=== PATIENT | female | born 1940 | race Caucasian/White ===

== ENCOUNTER 2017-04-13 08:27 | Inpatient (IN) ==
[2017-04-13] MEDS ORDERED: ONDANSETRON 4 MG/2 ML VIAL IV STA (09:19)
[2017-04-13] MEDS ORDERED: ASPIRIN 325 MG TABLET PO STA (09:19)
[2017-04-13] MEDS ORDERED: ALUM/MAG/SIMETH/LIDO VISC 1:1 30 ML BOTTLE PO STA (09:19)
[2017-04-13] MEDS ORDERED: hydrALAZINE 20 MG/1 ML VIAL IV STA (09:19)
[2017-04-13] MEDS ORDERED: NITROGLYCERIN 2% OINT 1 INCH/GM PACK TOP STA (09:19)
--- NOTE | 2017-04-13 09:24 | EKG Report ---
Stationary ECG Study [facility] ER Test Date: 04/13/2017 8:55:37 AM Pat Name: GLENDA DIAZ Department: Room: Gender: F Mini Lab Operator: JEWELS : 1940 Requested by: Jean Barragan Order Number: [id number] Reading MD: KONRAD OCHOA Intervals [place] Rate: 42 P: 999 ME: 0 QRS: 65 QRSD: 93 T: 43 QT: 525 QTc: 466 Interpretive Statements SINUS RHYTHM WITH 3RD DEGREE AV BLOCK AND JUNCTIONAL ESCAPE Electronically Signed On 04-14-17 16:05:51 CDT by KONRAD OCHOA [email or web address]
--- NOTE | 2017-04-13 09:26 | Emergency Department Note ---
Rex Hopson Brooke, am scribing for, and in the presence of, Jean House MD 09 :24. Harsh Hopson Charles R, MD, personally performed the services described in this documentation, ascribed by Esther Goodman in my presence, and it is both accurate and complete 926 . Arrival - Arrival Chief Complaint: Extremity Problem Stated Complaint: PAIN ON LEFT SIDE,FATIGUE,WEAKNESS ED Nursing Triage Note: Pt c/o pain under left shoulder blade x 2 wks with some dizziness, nausea, dirrhea, weakness, and SOB. States she saw a ROTARY ENGRAVER yesterday in [place] told she needs a cardiac W/U Mode of Arrival: Ambulatory Limitations: No Limitations Source: Patient, RN Notes Reviewed Time Seen by Provider: 04/13/17 09:11 - History of Present Illness HPI Narrative: Patient is a 76 year old female who presents to the ED with c/o pain under the left shoulder blade, shortness of breath, dizziness, nausea, and diarrhea. Patient says she moved a concrete statue, about two weeks ago, and that is when the shoulder blade pain developed. She says the pain has gotten better with time. Patient then developed the shortness of breath, dizziness, nausea, and diarrhea last night, so it concerned her. She saw a Nurse Practitioner, yesterday, at Dr. Lala's office and was told she needed a cardiac workup. Patient denies having any chest pain or fever but does have some edema to her lower extremities. She has PMHx of HTN and NIDDM. Upon triage, her blood pressure was 224/68. She is currently prescribed Hydralazine. Allergies/Adverse Reactions: Allergies Allergy/AdvReac Type Severity Reaction Status Date / Time Sulfa (Sulfonamide Allergy Swelling Verified 04/13/17 08:32 Antibiotics) of Lip/Tongue/Throat codeine AdvReac Nausea Verified 04/13/17 08:32 Home Medications: Home Medications Medication Instructions Recorded Confirmed Type Aspirin EC Tab 81 mg PO QAM 04/13/17 04/13/17 History Bisoprolol/Hctz 2.5-6.25 [Ziac 2 tablet PO QAM 04/13/17 04/13/17 History 2.5-6.25] Enalapril Tab [Vasotec Tab] 1.25 mg PO DAILY 04/13/17 04/13/17 History Omeprazole [Prilosec] 20 mg PO QAM 04/13/17 04/13/17 History glipiZIDE [Glipizide] 5 mg PO BID 04/13/17 04/13/17 History metFORMIN [Glucophage] 1,000 mg PO BID 04/13/17 04/13/17 History Review of System - Review of System 12 point system: reviewed and no additional remarkable complaints except as stated - Review of System Constitutional: Absent: fever Respiratory: Present: other (shortness of breath). Absent: respiratory distress Cardiovascular: Absent: chest pain Gastrointestinal: Present: nausea, diarrhea Musculoskeletal: Present: other (pain under left shoulder blade) Skin: Absent: rash Neurological: Present: other (dizziness) Medical,Surgical,& Family Hx - Medical History Cardio: History of: Hypertension Endocrine: History of: Diabetes Mellitus (NIDDM) - Social History Smoking Status: Never smoker Exam Vital Signs: Vital Signs Temperature 97.1 F L 04/13/17 08:56 Pulse Rate 44 L 04/13/17 08:56 Respiratory Rate 18 04/13/17 08:56 Blood Pressure 224/68 04/13/17 08:56 O2 Sat by Pulse Oximetry 100 04/13/17 09:29 - General General appearance: alert, in no apparent distress - Head Head exam: Present: atraumatic, normocephalic - Eye Eye exam: Present: normal appearance, PERRL, EOMI - ENT ENT exam: Present: normal exam - Neck Neck exam: Present: normal inspection - Chest Chest inspection: Present: normal inspection, symmetric chest wall rise - Respiratory Respiratory exam: Present: normal lung sounds bilaterally - Cardiovascular Cardiovascular exam: Present: normal rhythm, bradycardia, murmur (3 out of 6 systolic objection) - Abdominal Exam Abdominal exam: Present: soft, hyperactive bowel sounds. Absent: distention, tenderness - Extremities Exam Extremities exam: Present: pedal edema (+2 pitting edema bilateral lower extremities), other (Pain on the left posterior shoulder blade that is reproducable) - Back Exam Back exam: Present: normal inspection - Neurological Exam Neurological exam: Present: alert, oriented X3 - Psychiatric Psychiatric exam: Present: normal affect, normal mood - Skin Skin exam: Present: warm, intact, normal color. Absent: dry (clammy) Course - Consultations Consultation #1: Hospitalist will admit patient Time: 11:04 Results - Labs CBC & BMP: 04/13/17 08:48 04/13/17 08:48 Lab Results: I have reviewed the patients labs Labs: Laboratory Tests 04/13/17 08:48 WBC 11.7 RBC 4.12 Hgb 9.8 L Hct 31.5 L MCV 76.5 L MCH 24 L MCHC 31.1 L RDW 18.4 H Plt Count 331 MPV 10.6 Neut % (Auto) 76.2 H Lymph % (Auto) 16.2 L Mills % (Auto) 6.7 Eos % (Auto) 0.2 Baso % (Auto) 0.1 Neut # (Auto) 8.9 H Lymph # (Auto) 1.9 Mills # (Auto) 0.8 Eos # (Auto) 0.0 Baso # (Auto) 0.0 Immature Gran % 0.6 Nucleated RBC % 0.0 Immature Gran # 0.07 Nucleated RBCs # 0.00 Laboratory Tests 04/13/17 08:48 INR 1.1 PT Patient/Control Mix 11.4 D-Dimer, Quantitative 0.6 Laboratory Tests 04/13/17 04/13/17 04/13/17 08:48 08:48 08:48 Sodium 138 Potassium 4.6 Chloride 107 Carbon Dioxide 19 L Anion Gap 16.6 H BUN 28 H Creatinine 1.00 GFR Calculation 49 BUN/Creatinine Ratio 28.00 H Glucose 193 H Calculated Osmolality 285.7 Calcium 9.0 Magnesium 2.0 Total Bilirubin < 0.39 AST 28 ALT 41 Alkaline Phosphatase 74 Troponin I < 0.015 B-Natriuretic Peptide 906 H Total Protein 7.3 Albumin 3.6 Globulin 3.7 H Albumin/Globulin Ratio 0.9 L Lipase 149.0 Laboratory Tests 04/13/17 09:00 Free T4 1.25 TSH 3rd Generation 2.160 - Diagnostic Findings Procedure: Chest x-ray: report reviewed by me (Mild diffuse interstitial pulmonary opacities most likely pulmonary edema. Interstitial infiltrates or chronic interstitial coarsening could be considered as well. Upright PA and lateral film recommended when feasible.) Critical Care Time Critical Care Time: Yes Total Critical Care Time: 60 Disposition Clinical Impression: Lower extremity edema, Bradycardia, Congestive heart failure, Uncontrolled hypertension, Exertional dyspnea, Chest pain Case discussed with: patient, patient's family Disposition: Still a Patient Condition: Stable Time of Disposition: 11:05
[2017-04-13] MEDS ORDERED: FUROSEMIDE 40 MG/4 ML VIAL IV STA (09:33)
[2017-04-13 09:34] LABS: Basophils % 0.1 % (0.0-0.8); Eosinophils % 0.2 % (0.00-10.9); Hematocrit 31.5 VOL% (35.7-47.0); Hemoglobin 9.8 GM/DL (12.0-16.0); Immature Granulocytes % 0.6 %; Immature Granulocytes Absolute 0.07 #; Lymphocytes # 1.9 10*3/uL (1.4-4.0); Lymphocytes % 16.2 % (21.3-54.2); Mean Corpuscular HGB Conc 31.1 GM/DL (32-36); Mean Corpuscular Hemoglobin 24 PG (27-34); Mean Corpuscular Volume 76.5 FL (87-102); Mean Platelet Volume 10.6 FL (9.6-12.0); Monocytes # 0.8 10*3/uL (0.11-0.8); Monocytes % 6.7 % (1.7-12.7); Neutrophils # 8.9 10*3/uL (1.4-7.4); Neutrophils % 76.2 % (38.7-73.9); Platelet Count 331 T/CUMM (130-400); Red Blood Count 4.12 MC/CUMM (3.8-5.5); Red Cell Distribution Width 18.4 % (9.3-17.3); White Blood Count 11.7 T/CUMM (4-12)
[2017-04-13] MEDS ORDERED: NITROGLYCERIN 2% OINT 1 INCH/GM PACK TOP ONE (09:34)
[2017-04-13] MEDS ORDERED: hydrALAZINE 20 MG/1 ML VIAL ONE (09:35)
[2017-04-13] MEDS ORDERED: ALUM/MAG/SIMETH/LIDO VISC 1:1 30 ML BOTTLE PO ONE (09:35)
[2017-04-13] MEDS ORDERED: ONDANSETRON 4 MG/2 ML VIAL ONE (09:35)
[2017-04-13] MEDS ORDERED: ASPIRIN 325 MG TABLET ONE (09:35)
[2017-04-13 09:49] LABS: D-Dimer 0.6 MG/L FEU; INR 1.1; PT Patient Result 11.4 SECS
--- NOTE | 2017-04-13 10:05 | XRay Report ---
History is chest pain The heart is enlarged with central vascular prominence There are mild diffuse bilateral interstitial pulmonary opacities without more focal consolidation. Impression: Mild diffuse interstitial pulmonary opacities most likely pulmonary edema. Interstitial infiltrates or chronic interstitial coarsening could be considered as well. Upright PA and lateral film recommended when feasible PROCEDURE INTERPRETED AT [facility] DEPARTMENT OF RADIOLOGY Final Report Signed by: Dr. Linh Kirkpatrick
[2017-04-13 10:09] LABS: Alanine Aminotransferase 41 U/L (13-56); Albumin 3.6 G/DL (3.4-5.0); Alkaline Phosphatase 74 U/L (45-117); Aspartate Amino Transferase 28 U/L (0-37); Bilirubin,Total < 0.39 MG/DL (0.2-1.0); Blood Urea Nitrogen 28 MG/DL (7-18); Glucose 193 MG/DL (74-106); Osmolality,Calculated 285.7 MOS/KG (273-304); Potassium 4.6 MMOL/L (3.5-5.1); Sodium 138 MMOL/L (136-145); Total Protein 7.3 G/DL (6.4-8.3)
[2017-04-13 10:24] LABS: Free T4 (Free Thyroxine) 1.25 NG/DL (0.76-1.46); Thyroid Stimulating Hormone 2.16 uIU/ml (0.358-3.74)
[2017-04-13] MEDS ORDERED: ZALEPLON 5 MG CAPSULE PO PRN (11:54)
[2017-04-13] MEDS ORDERED: ONDANSETRON 4 MG/2 ML VIAL IV PRN (11:54)
[2017-04-13] MEDS ORDERED: MAGNESIUM SULF RIDER 4 GM in PREMIX 1 EACH IV PRN (11:54)
[2017-04-13] MEDS ORDERED: MAGNESIUM SULF RIDER 2 GM in PREMIX 1 EACH IV PRN (11:54)
[2017-04-13] MEDS ORDERED: ACETAMINOPHEN 325 MG TABLET PO PRN (11:54)
[2017-04-13] MEDS ORDERED: GLUCAGON 1 MG VIAL IM PRN (11:54)
[2017-04-13] MEDS ORDERED: DEXTROSE 50% 25 GM/50 ML VIAL IV PRN (11:54)
[2017-04-13] MEDS ORDERED: ENOXAPARIN 40 MG/0.4 ML SYRINGE SUBCUT SCH (12:00)
--- NOTE | 2017-04-13 12:01 | Hospitalist History & Physical ---
Addendum entered and electronically signed by Aldair Moffett PA 04/13/17 12:24 : In addition to the assessment and plan as listed below, the patient also has non -insulin-dependent diabetes. We will continue glipizide and initiate sliding scale insulin per protocol. Original Note: <Aldair Moffett - Last Filed: 04/13/17 11:53> Assessment and Plan (1) Congestive heart failure Status: Acute Assessment and plan: Chest x-ray shows evidence of pulmonary edema. BNP is 906. Patient will be admitted to the telemetry unit for observation and valuation. We will diuresis with IV Lasix 40 mg BID. Obtain BMP, CBC, lipid panel, serial troponins. Continue RYAN inhibitor Current Visit: Yes (2) Hypertension Status: Acute Assessment and plan: Continue home meds. Add hydralazine as needed Current Visit: Yes (3) Lower extremity edema Status: Acute Assessment and plan: She will be diuresed Current Visit: Yes (4) Bradycardia Status: Acute Assessment and plan: We are holding her beta-louise at the moment. Continue to monitor and adjust medications accordingly. Current Visit: Yes History of Present Illness Chief complaint: Dizziness, weakness, fatigue History of present illness: Ms. Henry is a 76 year old white female with a past medical history significant for hypertension and diabetes mellitus who presents to the ED today with complaints of dizziness, weakness and worsening fatigue having onset approximately 2 weeks ago. Patient reports that she initially began feeling the symptoms after moving some concrete planters on her front porch. She notes that she did feel a sharp pain in her back (under the left shoulder blade) that she attributed to muscle spasms which she already sees a chiropractor for. Today she notes that she has been dizzy with intermittent shortness of breath, epigastric pain, nausea and diarrhea on last night. She also admits to bilateral lower extremity edema. She notes that she did see a nurse practitioner at Dr. Lala's office on yesterday who told the patient that she needed a cardiac workup. She denies headache, chest pain, palpitations, syncope. Lab work at the time of admission reveals: WBC 11.7 hemoglobin 9.8, hematocrit 31.5, platelets 331, sodium 130, potassium 4.6, BUN 28, creatinine 1.00, serum glucose 193. BNP is 906. Chest x-ray does show some evidence of pulmonary edema. Case been discussed with Dr. House, ER physician, and Dr. Lindquist, admitting physician, the patient will be admitted to telemetry unit to hospital medicine service for further evaluation and treatment. Patient is a full code. Home meds have been reviewed and reconciled. Home Medications Medication Instructions Recorded Confirmed Type Aspirin EC Tab 81 mg PO QAM 04/13/17 04/13/17 History Bisoprolol/Hctz 2.5-6.25 [Ziac 2 tablet PO QAM 04/13/17 04/13/17 History 2.5-6.25] Enalapril Tab [Vasotec Tab] 1.25 mg PO DAILY 04/13/17 04/13/17 History Glucosamine/D3/Boswellia Mary Ann 1 tablet PO DAILY 04/13/17 04/13/17 History [Osteo Bi-Flex Tablet] Omeprazole [Prilosec] 20 mg PO QAM 04/13/17 04/13/17 History glipiZIDE [Glipizide] 5 mg PO BID 04/13/17 04/13/17 History metFORMIN [Glucophage] 1,000 mg PO BID 04/13/17 04/13/17 History Allergies Allergy/AdvReac Type Severity Reaction Status Date / Time Sulfa (Sulfonamide Allergy Swelling Verified 04/13/17 08:32 Antibiotics) of Lip/Tongue/Throat codeine AdvReac Nausea Verified 04/13/17 08:32 Medical,Surgical,& Family Hx - Medical History Cardio: History of: Hypertension Endocrine: History of: Diabetes Mellitus (NIDDM) - Family History Family History: Reports;: Family Heart Disease, Family Hypertension - Social History Smoking Status: Never smoker Frequency of Alcohol Use: None Type of Drug Use: None Marital Status: Lives With:: Spouse Functional capacity: independent ambulation 12 point system: reviewed and no additional remarkable complaints except as stated Exam - Constitutional Vitals: Period Temp Pulse Resp BP Sys/Gregg Pulse Ox Last 24 Hr 97.1 F-97.1 F 44-46 17-18 160-224/58-68 98-100 Exam: General appearance: Overweight, no acute distress - Head Head exam: Present: normocephalic, atraumatic - Eye Eye exam: Present: EOMI. Absent: conjunctival injection, nystagmus Pupils: Present: NORM, normal accommodation - ENT ENT exam: Present: normal exam, normal external ear exam - Neck Neck exam: Present: normal inspection. Absent: lymphadenopathy, tenderness, thyromegaly - Respiratory Respiratory exam: Present: clear to auscultation bilaterally but diminished. Absent: rhonchi, wheezes - Cardiovascular Cardiovascular exam: Present: Bradycardia. Absent: carotid bruit, gallop, rubs - GI/Abdominal GI/Abdominal exam: Present: normal bowel sounds. Absent: ascites, distended, mass - Extremities Exam Extremities exam: Present: normal inspection, normal capillary refill. Absent: edema - Back Exam Back exam: Absent: CVA tenderness (L), CVA tenderness (R) - Neurological Exam Neurological exam: Present: alert, oriented X3, reflexes normal - Psychiatric Psychiatric exam: Present: normal affect, normal mood - Skin Skin exam: Present: normal color, warm, dry Results - Labs CBC & BMP: 04/13/17 08:48 04/13/17 08:48 Lab Results: I have reviewed the past 24 hour labs - EKG EKG results: interpreted by ANEESH, sinus rhythm (High-grade AV block) <Dinorah Lindquist R - Last Filed: 04/13/17 14:38> Assessment and Plan (1) Bradycardia Status: Acute Assessment and plan: hold ziac and may have sleep apnea. Cardiology to see Current Visit: Yes (2) Diabetes mellitus Status: Acute Assessment and plan: hemoglobin A1c and restart glipizide Current Visit: Yes (3) Congestive heart failure Status: Acute Assessment and plan: agree with above, echo Current Visit: Yes (4) Chest pain Status: Acute Assessment and plan: ER MD felt she had chest pain but she denied it Current Visit: Yes (5) Hypertension Status: Acute Assessment and plan: agree Current Visit: Yes (6) VILMA (obstructive sleep apnea) Status: Acute Assessment and plan: will consult Dr. perdue may be contributing to her bradycardia Current Visit: Yes History of Present Illness History of present illness: Ms. Henry is a 76 year old female Exam - Constitutional Vitals: Period Temp Pulse Resp BP Sys/Gregg Pulse Ox Last 24 Hr 97.1 F-98.2 F 44-46 17-18 160-224/58-68 98-100 Results - Labs CBC & BMP: 04/13/17 08:48 04/13/17 08:48
--- NOTE | 2017-04-13 12:24 | EKG Report ---
Stationary ECG Study [facility] Test Date: 04/13/2017 12:27:41 PM Pat Name: GLENDA DIAZ Department: Room: 266 Gender: F Shoe Planner: POP : 1940 Requested by: Jean Barragan Order Number: [id number] Reading MD: KONRAD OCHOA Intervals [place] Rate: 44 P: 999 VA: 0 QRS: 28 QRSD: 86 T: 36 QT: 503 QTc: 453 Interpretive Statements SINUS RHYTHM WITH 3RD DEGREE AV BLOCK AND JUNCTIONAL ESCAPE Electronically Signed On 04-14-17 16:09:43 CDT by KONRAD OCHOA [email or web address]
[2017-04-13] MEDS: PANTOPRAZOLE 40 MG TABLET PO SCH (13:30)
[2017-04-13] MEDS: ENALAPRIL 2.5 MG TABLET PO SCH (13:35)
[2017-04-13] MEDS: hydrALAZINE 25 MG TABLET PO SCH ×2 (15:46→20:40)
[2017-04-13] MEDS: INSULIN LISPRO 100 UNIT/ML SUBCUT SCH ×2 (15:46→20:40)
--- NOTE | 2017-04-13 16:13 | EKG Report ---
Stationary ECG Study [facility] Test Date: 04/13/2017 4:16:08 PM Pat Name: GLENDA DIAZ Department: Room: 266 Gender: F Chief Creative Officer: : 1940 Requested by: Jean Barragan Order Number: [id number] Reading MD: KONRAD OCHOA Intervals [place] Rate: 45 P: 999 [place]: 0 QRS: 53 QRSD: 88 T: 29 QT: 508 QTc: 465 Interpretive Statements SINUS RHYTHM WITH 3RD DEGREE AV BLOCK NSSTT POOR QUALITY BASELINE Electronically Signed On 04-14-17 16:17:18 CDT by KONRAD OCHOA [email or web address]
--- NOTE | 2017-04-13 17:43 | ECHO Report ---
Uma Henry Exam Date: 04/13/2017 13:53 Referring Physician: Technologist: Dayna Dupree RDCS Age: 76 Ht (in): 56 Wt (lb): 143 Gender: F Exam Location: [facility] Indications: Heart failure, unspecified, Essential (primary) hypertension, Edema, unspecified, Bradycardia, unspecified, NIDDM, Dizziness and giddiness, Weakness, Chronic fatigue, unspecified, Shortness of breath BP: 160 / 58 HR: 46 Rhythm: Sinus Technical Quality: IMPRESSIONS Grossly 2-3+ left atrial enlargement Hyperdynamic LV systolic function with ejection fraction estimated 70% without segmental wall abnormality Significant mitral annular calcification with 1+ mitral regurgitation and mitral stenosis, possibly severe (gradient not measured) 2+ aortic stenosis with mean and peak gradients of 16/30 mmHg 1-2+ tricuspid regurgitation with RVSP 79 mmHg plus RAP suggesting severe pulmonary hypertension MEASUREMENTS (Male / Female) Normal Values 2D ECHO LV Diastolic Diameter PLAX 4.3 cm 4.2 - 5.9 / 3.9 - 5.3 cm LV Systolic Diameter PLAX 2.7 cm LV Fractional Shortening PLAX 36.5 % IVS Diastolic Thickness 1.1 cm 0.6 - 1.0 / 0.6 - 0.9 cm LVPW Diastolic Thickness 1.0 cm 0.6 - 1.0 / 0.6 - 0.9 cm RV Internal Dim ED PLAX 3.2 cm Aortic Root Diameter 2.9 cm LA Systolic Diameter LX 3.6 cm 3.0 - 4.0 / 2.7 - 3.8 cm DOPPLER TR Peak Velocity 444.0 cm/s TR Peak Gradient 78.9 mmHg FINDINGS Left Ventricle Normal left ventricular cavity size. Mild left ventricular hypertrophy. Left ventricular ejection fraction is estimated at Right Ventricle The right ventricle is normal in size and function. Right Atrium Moderately increased right atrial size. Left Atrium Moderately increased left atrial size. Mitral Valve Thickened mitral valve. Moderate mitral annular calcification. Mild- moderate mitral valve regurgitation. Aortic Valve Mild aortic valve sclerosis. Mean gradient 15 mmHg, CONSTANTINO 1.9 cm. Trace aortic valve regurgitation. Tricuspid Valve Morphologically normal tricuspid valve. [id number] tricuspid valve regurgitation. Tricuspid regurgitation velocities suggest a PAP of 89 mmHg. Pulmonic Valve Morphologically normal pulmonic valve. Mild pulmonary valve regurgitation. Pericardium Normal pericardium without effusion. Aorta Normal ascending aorta dimension. Dae Joransen (Electronically Signed) Final Date: 13 April 2017 17:42
[2017-04-13 18:10] LABS: Apearance,Urine Slightly Hazy (Clear); Bilirubin,Urine Negative (Negative); Blood, Urine Negative (Negative); Glucose,Urine (UA) Negative (Negative); Hyaline Casts,Urine 10 /LPF (0-3); Ketones,Urine Negative (Negative); Nitrite,Urine Negative (Negative); Protein,Urine 30 MG/DL; RBC,Urine <1 /HPF (0-4); Squamous Epithelial Cell,Urine Occasional /HPF (0-10); Urine Color Yellow (Yellow); Urine Specific Gravity 1.006 (1.001-1.035); Urine Urobilinogen < 2.0 EU/DL (0.2-1.0); WBC,Urine 1 /HPF (0-6)
--- NOTE | 2017-04-13 18:21 | Cardiology Consult Note ---
Assessment and Plan (1) Third degree AV block Status: Acute Assessment and plan: 1. 76-year-old with hypertension, NIDDM, and two-week history of fatigue with dizziness 2 weeks ago as well as yesterday associated with bradycardia from third-degree heart block (narrow complex junctional escape in the mid 40s), feeling a bit better this afternoon. 2. She has been on bisoprolol for 20 years and took some between 7 and 8:00 this morning; will hold this and consider pacemaker placement tomorrow. 3. Increased gradient across her mitral valve suggest mitral stenosis from mitral annular calcification; I have asked that the gradient be measured in the morning to better assess this. 4. N.p.o. after midnight. I have asked Dr. Elizabeth to perform pacemaker placement tomorrow if needed. 5. Check morning EKG 6. Check TSH, electrolytes and morning 7. Of note blood pressure was 220s/60s initially this morning. Current Visit: Yes (2) Dizziness Status: Acute Current Visit: Yes (3) Hypertension Status: Acute Current Visit: Yes History of Present Illness - Consult Narrative History of present illness: Ms. Henry is a 76 year old female who reports some scapular pain while moving a statue on some sliders 2 weeks ago. She then went cut the grass and noticed some fatigue and diaphoresis as well as some dizziness without true presyncope or syncope. She has had some milder symptoms intermittently since that time but then yesterday she was walking in [facility] and developed more severe fatigue with dizziness as well. She was told by her practitioner to see a buckle and button maker because of her symptoms and medical problems. She has not had chest pain or significant shortness of breath. She did have a little lower extremity edema in the last couple of days. CC: Dinorah Lindquist MD - Home Medications and Allergies Home Medications: Home Medications Medication Instructions Recorded Confirmed Type Aspirin EC Tab 81 mg PO QAM 04/13/17 04/13/17 History Bisoprolol/Hctz 2.5-6.25 [Ziac 2 tablet PO QAM 04/13/17 04/13/17 History 2.5-6.25] Enalapril Tab [Vasotec Tab] 1.25 mg PO DAILY 04/13/17 04/13/17 History Glucosamine/D3/Boswellia Mary Ann 1 tablet PO DAILY 04/13/17 04/13/17 History [Osteo Bi-Flex Tablet] Omeprazole [Prilosec] 20 mg PO QAM 04/13/17 04/13/17 History glipiZIDE [Glipizide] 5 mg PO BID 04/13/17 04/13/17 History metFORMIN [Glucophage] 1,000 mg PO BID 04/13/17 04/13/17 History Allergies/Adverse Reactions: Allergies Allergy/AdvReac Type Severity Reaction Status Date / Time Sulfa (Sulfonamide Allergy Swelling Verified 04/13/17 08:32 Antibiotics) of Lip/Tongue/Throat codeine AdvReac Nausea Verified 04/13/17 08:32 Medical,Surgical,& Family Hx - Medical History Cardio: History of: Hypertension No history of: Aneurysm, Cardiac Dysrhythmia, Cerebrovascular Disease, Congenital Heart Disease, CHF, CAD, [place], Pacemaker, PVD, Valvular Heart Disease Psychological: No history of: Anxiety Disorders, ADHD, Behavior Problems, Bipolar Disorder, Depression, Previous Suicide Attempt, Psychiatric/Substance Abuse Tx, Schizophrenia, Violent Behavior, Psychiatric Problems Neurology: History of: Vertigo (Started two weeks ago) No history of: Brain Aneurysm, Cerebral Hemorrhage, Cerebrovascular Accident , Cerebral Palsy, Dementia, Migraine, Multiple Sclerosis, Parkinson's Disease, Peripheral Neuropathy, Seizures, TIA, Neurologocal Cancer HEENT: History of: Eye Problem (Wears glasses) Endocrine: History of: Diabetes Mellitus (NIDDM) No history of: Dyslipidemia Gastrointestinal: No history of: GI Problems Musculoskeletal: History of: Osteoporosis Hematology: History of: Anemia No history of: Bleeding Problems - Surgical History Cardiac Surgeries: Patient Denies: Femoral-Popliteal Bypass Graft, Cardiac Catheterization, Cardiac Surgery, Carotid Endarterectomy, Internal Defibrillator, Vascular Access Devices Thoracic Surgeries: Patient denies;: Lobectomy Neurologic Surgeries: Patient denies: Brain Aneurysm, Cerebral Hemorrhage, Neurologic Surgery HEENT Surgeries: Patient denies: Carotid Endarterectomy, Eye Surgery Abdominal Surgeries: Patient denies: Abdominal Surgery, Splenectomy Reproductive Surgeries: Patient denies;: Breast Surgery, Section, Dilation and Curettage, Genitourinary Surgery, Gynecologic Surgery, Hysterectomy, Tubal Ligation Orthopedic Surgeries: Patient denies;: Total Knee Replacement - Family History Family History: Reports;: Family Cancer, Family Diabetes, Family Heart Disease, Family Hypertension Denies;: Family Anesthesia Reaction, Family Hematology - Social History Smoking Status: Never smoker Frequency of Alcohol Use: None Type of Drug Use: None Physical Examination Vital Signs Temp Pulse Resp BP Pulse Ox 97.1 F L 44 L 18 224/68 98 04/13/17 08:28 04/13/17 08:28 04/13/17 08:28 04/13/17 08:28 04/13/17 08:28 General: Present: Appears Well, No Apparent Distress Neck: Present: Supple Neck, Midline Trachea Cardiac: Present: Regular Rhythm, Bradycardia Lungs: Present: Normal Exam, No Wheezes, No Rhonchi Neuro: Present: Weakness. Absent: Resting Tremor Abdomen: Present: Soft, Non-Tender Extremities: Present: No Edema Result/EKG - Labs CBC & BMP: 04/13/17 08:48 04/13/17 08:48 Labs: Laboratory Results - last 24 hr 04/13/17 04/13/17 04/13/17 08:48 08:48 08:48 WBC RBC Hgb Hct MCV MCH MCHC RDW Plt Count MPV Neut % (Auto) Lymph % (Auto) [place] % (Auto) Eos % (Auto) Baso % (Auto) Neut # (Auto) Lymph # (Auto) [place] # (Auto) Eos # (Auto) Baso # (Auto) Immature Gran % Nucleated RBC % Immature Gran # Nucleated RBCs # INR 1.1 PT Patient/Control Mix 11.4 D-Dimer, Quantitative 0.6 Sodium 138 Potassium 4.6 Chloride 107 Carbon Dioxide 19 L Anion Gap 16.6 H BUN 28 H Creatinine 1.00 GFR Calculation 49 BUN/Creatinine Ratio 28.00 H Glucose 193 H POC Glucose Calculated Osmolality 285.7 Calcium 9.0 Magnesium 2.0 Total Bilirubin < 0.39 AST 28 ALT 41 Alkaline Phosphatase 74 Troponin I B-Natriuretic Peptide 906 H Total Protein 7.3 Albumin 3.6 Globulin 3.7 H Albumin/Globulin Ratio 0.9 L Lipase 149.0 Free T4 TSH 3rd Generation Urine Color Urine Appearance Urine pH Ur Specific [place] Urine Protein Urine Glucose (UA) Urine Ketones Urine Blood Urine Nitrate Urine Bilirubin Urine Urobilinogen Urine Leukocytes Urine RBC Urine WBC Ur Squamous Epith Cells Hyaline Casts Ur Culture Indicated? 04/13/17 04/13/17 04/13/17 08:48 08:48 09:00 WBC 11.7 RBC 4.12 Hgb 9.8 L Hct 31.5 L MCV 76.5 L MCH 24 L MCHC 31.1 L RDW 18.4 H Plt Count 331 MPV 10.6 Neut % (Auto) 76.2 H Lymph % (Auto) 16.2 L [place] % (Auto) 6.7 Eos % (Auto) 0.2 Baso % (Auto) 0.1 Neut # (Auto) 8.9 H Lymph # (Auto) 1.9 [place] # (Auto) 0.8 Eos # (Auto) 0.0 Baso # (Auto) 0.0 Immature Gran % 0.6 Nucleated RBC % 0.0 Immature Gran # 0.07 Nucleated RBCs # 0.00 INR PT Patient/Control Mix D-Dimer, Quantitative Sodium Potassium Chloride Carbon Dioxide Anion Gap BUN Creatinine GFR Calculation BUN/Creatinine Ratio Glucose POC Glucose Calculated Osmolality Calcium Magnesium Total Bilirubin AST ALT Alkaline Phosphatase Troponin I < 0.015 B-Natriuretic Peptide Total Protein Albumin Globulin Albumin/Globulin Ratio Lipase Free T4 1.25 TSH 3rd Generation 2.160 Urine Color Urine Appearance Urine pH Ur Specific [place] Urine Protein Urine Glucose (UA) Urine Ketones Urine Blood Urine Nitrate Urine Bilirubin Urine Urobilinogen Urine Leukocytes Urine RBC Urine WBC Ur Squamous Epith Cells Hyaline Casts Ur Culture Indicated? 04/13/17 04/13/17 04/13/17 09:00 12:05 15:18 WBC RBC Hgb Hct MCV MCH MCHC RDW Plt Count MPV Neut % (Auto) Lymph % (Auto) [place] % (Auto) Eos % (Auto) Baso % (Auto) Neut # (Auto) Lymph # (Auto) [place] # (Auto) Eos # (Auto) Baso # (Auto) Immature Gran % Nucleated RBC % Immature Gran # Nucleated RBCs # INR PT Patient/Control Mix D-Dimer, Quantitative Sodium Potassium Chloride Carbon Dioxide Anion Gap BUN Creatinine GFR Calculation BUN/Creatinine Ratio Glucose POC Glucose Calculated Osmolality Calcium Magnesium 2.0 Total Bilirubin AST ALT Alkaline Phosphatase Troponin I < 0.015 < 0.015 B-Natriuretic Peptide Total Protein Albumin Globulin Albumin/Globulin Ratio Lipase Free T4 TSH 3rd Generation Urine Color Urine Appearance Urine pH Ur Specific [place] Urine Protein Urine Glucose (UA) Urine Ketones Urine Blood Urine Nitrate Urine Bilirubin Urine Urobilinogen Urine Leukocytes Urine RBC Urine WBC Ur Squamous Epith Cells Hyaline Casts Ur Culture Indicated? 04/13/17 04/13/17 15:34 17:45 WBC RBC Hgb Hct MCV MCH MCHC RDW Plt Count MPV Neut % (Auto) Lymph % (Auto) [place] % (Auto) Eos % (Auto) Baso % (Auto) Neut # (Auto) Lymph # (Auto) [place] # (Auto) Eos # (Auto) Baso # (Auto) Immature Gran % Nucleated RBC % Immature Gran # Nucleated RBCs # INR PT Patient/Control Mix D-Dimer, Quantitative Sodium Potassium Chloride Carbon Dioxide Anion Gap BUN Creatinine GFR Calculation BUN/Creatinine Ratio Glucose POC Glucose 161 H Calculated Osmolality Calcium Magnesium Total Bilirubin AST ALT Alkaline Phosphatase Troponin I B-Natriuretic Peptide Total Protein Albumin Globulin Albumin/Globulin Ratio Lipase Free T4 TSH 3rd Generation Urine Color Yellow Urine Appearance Slightly hazy Urine pH 5.0 Ur Specific [place] 1.006 Urine Protein 30 Urine Glucose (UA) Negative Urine Ketones Negative Urine Blood Negative Urine Nitrate Negative Urine Bilirubin Negative Urine Urobilinogen < 2.0 H Urine Leukocytes Negative Urine RBC <1 Urine WBC 1 Ur Squamous Epith Cells Occasional Hyaline Casts 10 Ur Culture Indicated? Not indicated - EKG EKG shows: bradycardia (3rd degree AVB)
[2017-04-13] MEDS: glipiZIDE 5 MG TABLET PO SCH (20:40)
[2017-04-13] MEDS: FUROSEMIDE 40 MG/4 ML VIAL IV SCH (20:48)
[2017-04-14 05:23] LABS: Basophils % 0.2 % (0.0-0.8); Eosinophils # 0.1 10*3/uL (0.0-0.87); Eosinophils % 0.6 % (0.00-10.9); Hematocrit 26.4 VOL% (35.7-47.0); Hemoglobin 8.3 GM/DL (12.0-16.0); Immature Granulocytes % 0.6 %; Immature Granulocytes Absolute 0.08 #; Lymphocytes # 2.9 10*3/uL (1.4-4.0); Lymphocytes % 22.1 % (21.3-54.2); Mean Corpuscular HGB Conc 31.4 GM/DL (32-36); Mean Corpuscular Hemoglobin 24 PG (27-34); Mean Corpuscular Volume 75.9 FL (87-102); Mean Platelet Volume 10.3 FL (9.6-12.0); Monocytes # 1.2 10*3/uL (0.11-0.8); Monocytes % 8.8 % (1.7-12.7); Neutrophils % 67.7 % (38.7-73.9); Platelet Count 306 T/CUMM (130-400); Red Blood Count 3.48 MC/CUMM (3.8-5.5); Red Cell Distribution Width 18.5 % (9.3-17.3); White Blood Count 13.2 T/CUMM (4-12)
[2017-04-14 06:30] LABS: Albumin 3.1 G/DL (3.4-5.0); Bilirubin,Total 0.5 MG/DL (0.2-1.0); Calcium 8.4 MG/DL (8.5-10.1); Free T4 (Free Thyroxine) 1.4 NG/DL (0.76-1.46); Magnesium 2.1 MG/DL (1.8-2.4); Potassium 4.5 MMOL/L (3.5-5.1); Thyroid Stimulating Hormone 2.54 uIU/ml (0.358-3.74); Total Protein 6.2 G/DL (6.4-8.3)
[2017-04-14 06:40] LABS: Calcium 8.2 MG/DL (8.5-10.1); Osmolality,Calculated 281.1 MOS/KG (273-304); Potassium 4.5 MMOL/L (3.5-5.1); Risk Ratio 5.5
--- NOTE | 2017-04-14 07:28 | EKG Report ---
Stationary ECG Study 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
[2017-04-14] MEDS ORDERED: diphenhydrAMINE CAP 25 MG CAPSULE PO ONE (08:19)
[2017-04-14] MEDS ORDERED: DIAZEPAM 5 MG TABLET PO ONE (08:19)
[2017-04-14] MEDS ORDERED: ceFAZolin 1,000 MG VIAL IRRIG ONE (08:19)
[2017-04-14] MEDS ORDERED: SODIUM CHLORIDE 0.9% 1,000 ML IV SCH (08:30)
--- NOTE | 2017-04-14 08:30 | Cardiology Progress Note ---
Assessment and Plan (1) Third degree AV block Status: Acute Assessment and plan: See plan of care listed below. Current Visit: Yes (2) Diabetes mellitus Status: Chronic Assessment and plan: See plan of care listed below. Current Visit: Yes (3) Hypertension Status: Chronic Assessment and plan: See plan of care listed below. 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 Dr. Byrne Summary Ms. Melgar, 76-year-old female presented to the emergency department with weakness, fatigue and syncope. Past medical history includes: Hypertension and diabetes. She was noted to be in third-degree heart block. Subsequently, cardiology was consulted to further assist. April 14, 2017 update Patient was seen and examined on the telemetry unit. She continues to be in third-degree heart block with heart rates ranging in the 30s and 40s. Blood pressure is stable and patient is currently asymptomatic. Patient was seen along with Dr. Samuel Elizabeth. Discussed risk and benefits of placement of dual chamber pacemaker. Patient is agreeable to proceed today. Patient will be kept n.p.o. and plan for dual-chamber pacemaker at 1230. ASSESSMENT/PLAN 1. THIRD DEGREE HEART BLOCK - Dual-chamber pacemaker at [address] Sameul Elizabeth. Patient will be kept n.p.o. Risk and benefits of this procedure were discussed with the patient. She is agreeable to proceed. Hopeful for discharge tomorrow if patient does well overnight. 2. HYPERTENSION - Currently under well control. Beta-louise has been discontinued due to bradycardia. Will monitor blood pressure and adjust medications accordingly throughout her hospitalization. 3. DIABETES - Management per attending. Metformin on hold. Exam (Progress Note) - Constitutional Vitals: Period Temp Pulse Resp BP Sys/Gregg Pulse Ox Last 24 Hr 97.1 F-99.4 F 44-50 16-18 129-224/58-73 98-100 Exam: General: Appears well with no apparent distress. Pleasant and cooperative. Appears comfortable. HEENT: PERRL, normocephalic, atraumatic. Mucous membranes moist. No jaundice noted. Conjunctiva moist and clear, sclerae anicteric Neck: No JVD/HJR, no thyromegaly or lymphadenopathy noted. No carotid bruit appreciated Cardiac: Regular rate and rhythm, bradycardia. No murmur rub or gallop. Lungs: Clear to auscultation without accessory muscle use to assist the respiratory pattern. Not requiring oxygen. Abdomen: Soft, bowel sounds normoactive. Nontender and nondistended. No abdominal bruit or thrill noted. No masses noted. Extremities: No clubbing, cyanosis noted. No edema noted. Upper extremity pulses 2+. Lower extremity pulses 2+. Capillary refill less than 3 seconds. Skin: No unusual lesions or rashes. No skin breakdown appreciated. Neuro: Awake, alert and oriented 3. Moves all extremities well without hemiparesis or paralysis. No essential tremor is appreciated. Result/EKG - Labs CBC & BMP: 04/14/17 05:12 04/14/17 05:12 Lab Results: I have reviewed the past 24 hour labs Labs: Laboratory Results - last 24 hr 04/13/17 04/13/17 04/13/17 08:48 08:48 08:48 WBC RBC Hgb Hct MCV MCH MCHC RDW Plt Count MPV Neut % (Auto) Lymph % (Auto) [place] % (Auto) Eos % (Auto) Baso % (Auto) Neut # (Auto) Lymph # (Auto) [place] # (Auto) Eos # (Auto) Baso # (Auto) Immature Gran % Nucleated RBC % Immature Gran # Nucleated RBCs # INR 1.1 PT Patient/Control Mix 11.4 D-Dimer, Quantitative 0.6 Sodium 138 Potassium 4.6 Chloride 107 Carbon Dioxide 19 L Anion Gap 16.6 H BUN 28 H Creatinine 1.00 GFR Calculation 49 BUN/Creatinine Ratio 28.00 H Glucose 193 H POC Glucose Calculated Osmolality 285.7 Calcium 9.0 Magnesium 2.0 Total Bilirubin < 0.39 AST 28 ALT 41 Alkaline Phosphatase 74 Troponin I B-Natriuretic Peptide 906 H Total Protein 7.3 Albumin 3.6 Globulin 3.7 H Albumin/Globulin Ratio 0.9 L Triglycerides Cholesterol LDL Cholesterol VLDL Cholesterol HDL Cholesterol Heart Disease Risk Ratio Lipase 149.0 Free T4 TSH 3rd Generation Urine Color Urine Appearance Urine pH Ur Specific [place] Urine Protein Urine Glucose (UA) Urine Ketones Urine Blood Urine Nitrate Urine Bilirubin Urine Urobilinogen Urine Leukocytes Urine RBC Urine WBC Ur Squamous Epith Cells Hyaline Casts Ur Culture Indicated? 04/13/17 04/13/17 04/13/17 08:48 08:48 09:00 WBC 11.7 RBC 4.12 Hgb 9.8 L Hct 31.5 L MCV 76.5 L MCH 24 L MCHC 31.1 L RDW 18.4 H Plt Count 331 MPV 10.6 Neut % (Auto) 76.2 H Lymph % (Auto) 16.2 L [place] % (Auto) 6.7 Eos % (Auto) 0.2 Baso % (Auto) 0.1 Neut # (Auto) 8.9 H Lymph # (Auto) 1.9 [place] # (Auto) 0.8 Eos # (Auto) 0.0 Baso # (Auto) 0.0 Immature Gran % 0.6 Nucleated RBC % 0.0 Immature Gran # 0.07 Nucleated RBCs # 0.00 INR PT Patient/Control Mix D-Dimer, Quantitative Sodium Potassium Chloride Carbon Dioxide Anion Gap BUN Creatinine GFR Calculation BUN/Creatinine Ratio Glucose POC Glucose Calculated Osmolality Calcium Magnesium Total Bilirubin AST ALT Alkaline Phosphatase Troponin I < 0.015 B-Natriuretic Peptide Total Protein Albumin Globulin Albumin/Globulin Ratio Triglycerides Cholesterol LDL Cholesterol VLDL Cholesterol HDL Cholesterol Heart Disease Risk Ratio Lipase Free T4 1.25 TSH 3rd Generation 2.160 Urine Color Urine Appearance Urine pH Ur Specific [place] Urine Protein Urine Glucose (UA) Urine Ketones Urine Blood Urine Nitrate Urine Bilirubin Urine Urobilinogen Urine Leukocytes Urine RBC Urine WBC Ur Squamous Epith Cells Hyaline Casts Ur Culture Indicated? 04/13/17 04/13/17 04/13/17 09:00 12:05 15:18 WBC RBC Hgb Hct MCV MCH MCHC RDW Plt Count MPV Neut % (Auto) Lymph % (Auto) [place] % (Auto) Eos % (Auto) Baso % (Auto) Neut # (Auto) Lymph # (Auto) [place] # (Auto) Eos # (Auto) Baso # (Auto) Immature Gran % Nucleated RBC % Immature Gran # Nucleated RBCs # INR PT Patient/Control Mix D-Dimer, Quantitative Sodium Potassium Chloride Carbon Dioxide Anion Gap BUN Creatinine GFR Calculation BUN/Creatinine Ratio Glucose POC Glucose Calculated Osmolality Calcium Magnesium 2.0 Total Bilirubin AST ALT Alkaline Phosphatase Troponin I < 0.015 < 0.015 B-Natriuretic Peptide Total Protein Albumin Globulin Albumin/Globulin Ratio Triglycerides Cholesterol LDL Cholesterol VLDL Cholesterol HDL Cholesterol Heart Disease Risk Ratio Lipase Free T4 TSH 3rd Generation Urine Color Urine Appearance Urine pH Ur Specific [place] Urine Protein Urine Glucose (UA) Urine Ketones Urine Blood Urine Nitrate Urine Bilirubin Urine Urobilinogen Urine Leukocytes Urine RBC Urine WBC Ur Squamous Epith Cells Hyaline Casts Ur Culture Indicated? 04/13/17 04/13/17 04/13/17 15:34 17:45 19:46 WBC RBC Hgb Hct MCV MCH MCHC RDW Plt Count MPV Neut % (Auto) Lymph % (Auto) [place] % (Auto) Eos % (Auto) Baso % (Auto) Neut # (Auto) Lymph # (Auto) [place] # (Auto) Eos # (Auto) Baso # (Auto) Immature Gran % Nucleated RBC % Immature Gran # Nucleated RBCs # INR PT Patient/Control Mix D-Dimer, Quantitative Sodium Potassium Chloride Carbon Dioxide Anion Gap BUN Creatinine GFR Calculation BUN/Creatinine Ratio Glucose POC Glucose 161 H 291 H Calculated Osmolality Calcium Magnesium Total Bilirubin AST ALT Alkaline Phosphatase Troponin I B-Natriuretic Peptide Total Protein Albumin Globulin Albumin/Globulin Ratio Triglycerides Cholesterol LDL Cholesterol VLDL Cholesterol HDL Cholesterol Heart Disease Risk Ratio Lipase Free T4 TSH 3rd Generation Urine Color Yellow Urine Appearance Slightly hazy Urine pH 5.0 Ur Specific [place] 1.006 Urine Protein 30 Urine Glucose (UA) Negative Urine Ketones Negative Urine Blood Negative Urine Nitrate Negative Urine Bilirubin Negative Urine Urobilinogen < 2.0 H Urine Leukocytes Negative Urine RBC <1 Urine WBC 1 Ur Squamous Epith Cells Occasional Hyaline Casts 10 Ur Culture Indicated? Not indicated 04/14/17 04/14/17 04/14/17 05:12 05:12 05:12 WBC 13.2 H RBC 3.48 L Hgb 8.3 L Hct 26.4 L MCV 75.9 L MCH 24 L MCHC 31.4 L RDW 18.5 H Plt Count 306 MPV 10.3 Neut % (Auto) 67.7 Lymph % (Auto) 22.1 [place] % (Auto) 8.8 Eos % (Auto) 0.6 Baso % (Auto) 0.2 Neut # (Auto) 9.0 H Lymph # (Auto) 2.9 [place] # (Auto) 1.2 H Eos # (Auto) 0.1 Baso # (Auto) 0.0 Immature Gran % 0.6 Nucleated RBC % 0.0 Immature Gran # 0.08 Nucleated RBCs # 0.00 INR PT Patient/Control Mix D-Dimer, Quantitative Sodium 135 L 136 Potassium 4.5 4.5 Chloride 104 103 Carbon Dioxide 21 21 Anion Gap 14.5 16.5 H BUN 40 H D 40 H Creatinine 1.30 H 1.30 H GFR Calculation 37 37 BUN/Creatinine Ratio 30.00 H 30.00 H Glucose 138 H 137 H POC Glucose Calculated Osmolality 281.1 283.0 Calcium 8.2 L 8.4 L Magnesium 2.1 Total Bilirubin 0.50 AST 18 ALT 34 Alkaline Phosphatase 55 Troponin I B-Natriuretic Peptide Total Protein 6.2 L Albumin 3.1 L Globulin 3.1 Albumin/Globulin Ratio 1.0 L Triglycerides 220 H Cholesterol 143 LDL Cholesterol 79.0 VLDL Cholesterol 44.0 HDL Cholesterol 26 L Heart Disease Risk Ratio 5.50 Lipase Free T4 1.40 TSH 3rd Generation 2.540 Urine Color Urine Appearance Urine pH Ur Specific [place] Urine Protein Urine Glucose (UA) Urine Ketones Urine Blood Urine Nitrate Urine Bilirubin Urine Urobilinogen Urine Leukocytes Urine RBC Urine WBC Ur Squamous Epith Cells Hyaline Casts Ur Culture Indicated? 04/14/17 08:01 WBC RBC Hgb Hct MCV MCH MCHC RDW Plt Count MPV Neut % (Auto) Lymph % (Auto) [place] % (Auto) Eos % (Auto) Baso % (Auto) Neut # (Auto) Lymph # (Auto) [place] # (Auto) Eos # (Auto) Baso # (Auto) Immature Gran % Nucleated RBC % Immature Gran # Nucleated RBCs # INR PT Patient/Control Mix D-Dimer, Quantitative Sodium Potassium Chloride Carbon Dioxide Anion Gap BUN Creatinine GFR Calculation BUN/Creatinine Ratio Glucose POC Glucose 172 H Calculated Osmolality Calcium Magnesium Total Bilirubin AST ALT Alkaline Phosphatase Troponin I B-Natriuretic Peptide Total Protein Albumin Globulin Albumin/Globulin Ratio Triglycerides Cholesterol LDL Cholesterol VLDL Cholesterol HDL Cholesterol Heart Disease Risk Ratio Lipase Free T4 TSH 3rd Generation Urine Color Urine Appearance Urine pH Ur Specific [place] Urine Protein Urine Glucose (UA) Urine Ketones Urine Blood Urine Nitrate Urine Bilirubin Urine Urobilinogen Urine Leukocytes Urine RBC Urine WBC Ur Squamous Epith Cells Hyaline Casts Ur Culture Indicated? - EKG EKG results: interpreted by me (Third-degree heart block) EKG shows: bradycardia
[2017-04-14] MEDS: INSULIN LISPRO 100 UNIT/ML SUBCUT SCH ×4 (08:50→21:22)
--- NOTE | 2017-04-14 08:52 | ECHO Report ---
Uma Henry Exam Date: 04/14/2017 07:40 Referring Physician: Technologist: Age: 76 Ht (in): Wt (lb): Gender: F Exam Location: [facility] Echo Indications: BP: / HR: Rhythm: Sinus Technical Quality: IMPRESSIONS Focused study (please see previous study for full report!!!!) Severe mitral annular calcification causing severe mitral stenosis by mean and peak gradients (12/57 mmHg respectively); less than severe by pressure half-time measurement (2.6 cm) Severe tricuspid regurgitation is again demonstrated. MEASUREMENTS (Male / Female) Normal Values FINDINGS Left Ventricle Right Ventricle Right Atrium Left Atrium Mitral Valve Aortic Valve Tricuspid Valve Pulmonic Valve Pericardium Aorta Dae Byrne (Electronically Signed) Final Date: 14 April 2017 08:51
[2017-04-14] MEDS ORDERED: ASPIRIN EC 81 MG TABLET PO SCH (09:00)
[2017-04-14] MEDS ORDERED: SODIUM CHLORIDE 0.45% 1,000 ML IV SCH (09:00)
[2017-04-14] MEDS: FUROSEMIDE 40 MG/4 ML VIAL IV SCH (09:05)
[2017-04-14] MEDS: glipiZIDE 5 MG TABLET PO SCH ×2 (09:06→20:37)
[2017-04-14] MEDS: PANTOPRAZOLE 40 MG TABLET PO SCH (09:06)
[2017-04-14] MEDS: hydrALAZINE 25 MG TABLET PO SCH ×3 (11:19→20:37)
[2017-04-14] MEDS: ENALAPRIL 2.5 MG TABLET PO SCH (11:20)
[2017-04-14] MEDS ORDERED: HYDROmorphone 2 MG/1 ML VIAL ONE (12:33)
[2017-04-14] MEDS ORDERED: MIDAZOLAM 2 MG/2 ML VIAL ONE (12:33)
[2017-04-14] MEDS ORDERED: VANCOMYCIN 500 MG VIAL ONE (12:34)
[2017-04-14] MEDS ORDERED: LIDOCAINE 1%/EPI INJ 20 ML VIAL ONE (12:35)
[2017-04-14] MEDS ORDERED: TISSUE ADHESIVE 1 EACH APPLICATOR TOP ONE (13:21)
--- NOTE | 2017-04-14 13:31 | Cardiac Pacemaker ---
- Preoperative diagnosis Date of Procedure:: 04/14/17 Preoperative Diagnosis: Documented nonreversible symptomatic bradycardia due to , third degree atrioventricular block Procedure: Procedures performed 1. Percutaneous left subclavian venotomy with sheath placement 2. Placement of atrial and ventricular leads with threshold testing 3. Placement of dual-chamber permanent (note, this is an MRI compatible pacemaker system) The patient had symptomatic bradycardia due to high grade heart block (second- degree type II and third-degree) and needed a dual-chamber pacemaker. After informed consent was obtained was taken to catheter prepped and draped in usual sterile manner. We used minimal sedation for this case. We placed 2 J-tipped wires in the left subclavian vein using a modified Seldinger technique in the usual fashion. With then a pocket approximately 2 cm below the left clavicular border using blunt and sharp dissection as well as electrocautery. We then pulled our leads into the pocket from below. Using safe sheaths, we placed a Medtronic 5076-52 centimeter ventricular lead into the right ventricular apex and secured it with a helical coil. Serial number on the ventricular lead is [id number]. Excellent capture and sensing thresholds were achieved. We then used a Medtronic 5076-45 centimeter lead in the atrium. Serial number on the atrial lead was [id number]. Excellent capture and sensing thresholds were achieved. After the sheaths had been removed, we sutured the leads to the pocket floor using Ethibond suture. We then rinsed the pocket with antibiotic solution and then connected the leads to a Medtronic Advisa DR MRI compatible pacemaker model [id number]. Serial number on the pacemaker is [id number]. After the device give been connected to the leads, it was placed in the pocket and sutured pocket floor with Ethibond suture. We then closed the pocket 2 layers using Vicryl suture. We then applied a topical adhesive followed by Steri- Strips and a dressing. There were no apparent complications during the procedure. The patient remained stable throughout the procedure and will now be transferred back to her room for recovery. Anesthesia: minimal conscious sedation Surgeon / Physician: Samuel Elizabeth Estimated blood loss: minimal Condition: stable Disposition: floor - Medications / Follow-up
[2017-04-14] MEDS ORDERED: GLUCAGON 1 MG VIAL IM PRN (13:59)
[2017-04-14] MEDS ORDERED: DEXTROSE 50% 25 GM/50 ML VIAL IV PRN (13:59)
--- NOTE | 2017-04-14 14:10 | EKG Report ---
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
--- NOTE | 2017-04-14 15:28 | Hospitalist Progress Note ---
Assessment and Plan (1) Bradycardia Status: Acute Assessment and plan: s/p pacer Current Visit: Yes (2) Diabetes mellitus Status: Chronic Assessment and plan: hemoglobin A1c and cont glipizide Current Visit: Yes (3) Congestive heart failure Status: Acute Assessment and plan: BNP elevated at 906. echo severe pul htn, hold lasix Current Visit: Yes (4) Hypertension Status: Chronic Assessment and plan: cont vasotec and hydralazine Current Visit: Yes (5) VILMA (obstructive sleep apnea) Status: Acute Assessment and plan: Dr. perdue may be contributing to her bradycardia Current Visit: Yes (6) Pulmonary hypertension, moderate to severe Status: Acute Assessment and plan: severe on echo Current Visit: Yes (7) Mitral stenosis Status: Acute Assessment and plan: based echo Current Visit: Yes (8) Third degree AV block Status: Acute Assessment and plan: s/p pacer Current Visit: Yes (9) Leukocytosis Status: Acute Assessment and plan: levaquin IV, ua normal Current Visit: Yes Hospitalist: Subjective Interval history: Patient is getting a pacemaker today for third-degree heart block and bradycardia. Exam - Constitutional Vitals: Period Temp Pulse Resp BP Sys/Gregg Pulse Ox Last 24 Hr 97.2 F-99.7 F 46-175 16-20 129-179/47-73 95-100 Exam: Heart Rate-[joseph] Lungs-[CTAB] GI-[+bs soft, NT] Ext-[no edema] Neuro [Motor 5/5], [alert and oriented times 3] psych [normal mood and affect] General [no acute distress] Results - Labs CBC & BMP: 04/14/17 05:12 04/14/17 05:12 Lab Results: I have reviewed the past 24 hour labs - EKG EKG shows: bradycardia - Diagnostic Findings Procedure: Ultrasound: report reviewed by me (Grossly 2-3+ left atrial enlargement)
--- NOTE | 2017-04-14 15:56 | XRay Report ---
XR chest 1V portable Indication: Lead placement Comparison: 13 April 2017 Findings: The heart and mediastinum are normal in size and configuration. Pacemaker has been placed and appears in good position. The pulmonary vascularity is slightly prominent similar to previous exam. No lung infiltrates, effusions, pneumothorax or other abnormality is demonstrated. Impression: Pacemaker device appears in good position. No other significant changes. PROCEDURE INTERPRETED AT [facility] DEPARTMENT OF RADIOLOGY Final Report Signed by: Dr. Ramon Ron
[2017-04-14] MEDS ORDERED: LEVOFLOXACIN INJ 500 MG in PREMIX 1 EACH IV ONE (16:00)
[2017-04-15 05:06] LABS: Basophils % 0.2 % (0.0-0.8); Eosinophils % 0.4 % (0.00-10.9); Hematocrit 26.8 VOL% (35.7-47.0); Hemoglobin 8.2 GM/DL (12.0-16.0); Immature Granulocytes % 0.6 %; Immature Granulocytes Absolute 0.07 #; Lymphocytes # 2.2 10*3/uL (1.4-4.0); Lymphocytes % 20.6 % (21.3-54.2); Mean Corpuscular HGB Conc 30.6 GM/DL (32-36); Mean Corpuscular Hemoglobin 24 PG (27-34); Mean Corpuscular Volume 77.7 FL (87-102); Mean Platelet Volume 11.1 FL (9.6-12.0); Monocytes # 1.3 10*3/uL (0.11-0.8); Monocytes % 11.9 % (1.7-12.7); Neutrophils # 7.2 10*3/uL (1.4-7.4); Neutrophils % 66.3 % (38.7-73.9); Platelet Count 278 T/CUMM (130-400); Red Blood Count 3.45 MC/CUMM (3.8-5.5); Red Cell Distribution Width 18.5 % (9.3-17.3); White Blood Count 10.8 T/CUMM (4-12)
[2017-04-15 05:26] LABS: Calcium 8.1 MG/DL (8.5-10.1); Magnesium 2.1 MG/DL (1.8-2.4); Osmolality,Calculated 280.5 MOS/KG (273-304)
[2017-04-15] MEDS: INSULIN LISPRO 100 UNIT/ML SUBCUT SCH ×2 (07:45→11:44)
[2017-04-15] MEDS: PANTOPRAZOLE 40 MG TABLET PO SCH (08:39)
[2017-04-15] MEDS: hydrALAZINE 25 MG TABLET PO SCH (08:39)
[2017-04-15] MEDS: ENALAPRIL 2.5 MG TABLET PO SCH (08:39)
[2017-04-15] MEDS: glipiZIDE 5 MG TABLET PO SCH (08:39)
--- NOTE | 2017-04-15 08:49 | Discharge Summary ---
<Domonique Carvajal - Last Filed: 04/15/17 08:32> Hospital Course - Hospital Course Hospital Course: This is a very pleasant 76-year-old female that presented to the ED at [facility] on April 13, 2017 for evaluation of left shoulder blade pain, shortness of breath, fatigue, weakness, nausea, and diarrhea. The patient has a medical history significant for hypertension and non-insulin- dependent diabetes mellitus. The patient reported no significant surgical history at the time of presentation. She was sent from Dr. Voss's office yesterday for bradycardia and hypertension with 224/68. In addition, the patient was noted to be bradycardic with a heart rate in the 40s and third- degree heart block. The patient's BNP was noted at 906 and chest x-ray reported some evidence of pulmonary edema. The patient was subsequently admitted to the hospitalist services for continuation of care. A cardiology consultation was requested at the time of admission. On April 13 2017, echocardiogram reported grossly 23+ left atrial enlargement, hyperdynamic left ventricular systolic function with an ejection fraction estimated at 70% without segmental wall abnormality, significant mitral annular calcification with 1+ mitral regurgitation and mitral stenosis, +2 aortic stenosis with mean and peak gradients of 16/30 mmHg, 1-2+ tricuspid valve regurgitation with RSVP 79 mmHg plus RAP suggested severe pulmonary hypertension. The patient advised at the time of the need to consider pacemaker placement. On April 14, 2017, the patient underwent an uneventful placement of a dual chamber permanent pacemaker under the direction of Dr. Samuel Elizabeth. The patient's condition is stable. She has not encountered any significant overnight events. Patient was treated for acute diastolic chf. Today, we feel that she is indeed appropriate for discharge to follow-up with her primary care physician, Dr. Voss and system support administrator Dr. Elizabeth as indicated. Discharge Plan - Discharge Data Disposition: Home Health Service - Discharge Medications New Carvedilol [Coreg] 3.125 mg PO BID #60 tablet Furosemide Tab [Lasix Tab] 20 mg PO DAILY #30 tablet hydrALAZINE TAB [Apresoline Tab] 25 mg PO TID #90 tablet Albuterol Sulfate [Proair HFA] 2 puff INH Q6H PRN #1 inhaler PRN Reason: Shortness Of Breath/Wheezing Continue metFORMIN [Glucophage] 1,000 mg PO BID glipiZIDE [Glipizide] 5 mg PO BID Enalapril Tab [Vasotec Tab] 1.25 mg PO DAILY Aspirin EC Tab 81 mg PO QAM Omeprazole [Prilosec] 20 mg PO QAM Glucosamine/D3/Boswellia Mary Ann [Osteo Bi-Flex Tablet] 1 tablet PO DAILY Discontinued Bisoprolol/Hctz 2.5-6.25 [Ziac 2.5-6.25] 2 tablet PO QAM - Follow Up or Referral Follow Up: Samuel Elizabeth MD [Physician] - 1 Week pmdr monica [Other] - 2 Weeks - Forms/Instructions Exam - Constitutional Vitals: Period Temp Pulse Resp BP Sys/Gregg Pulse Ox Last 24 Hr 97.1 F-98.9 F 46-175 16-20 128-163/47-84 94-100 Discharge Results Procedures and tests throughout hospitalization: Pending Orders 04/14/17 12:20 CL pacemaker Routine 04/14/17 16:06 Blood Culture Stat Labs on day of discharge: Labs from last 24 hours 04/15/17 04/15/17 04/15/17 07:40 04:11 04:11 WBC 10.8 RBC 3.45 L Hgb 8.2 L Hct 26.8 L MCV 77.7 L MCH 24 L MCHC 30.6 L RDW 18.5 H Plt Count 278 MPV 11.1 Neut % (Auto) 66.3 Lymph % (Auto) 20.6 L Hawkins % (Auto) 11.9 Eos % (Auto) 0.4 Baso % (Auto) 0.2 Neut # (Auto) 7.2 Lymph # (Auto) 2.2 Hawkins # (Auto) 1.3 H Eos # (Auto) 0.0 Baso # (Auto) 0.0 Immature Gran % 0.6 Nucleated RBC % 0.0 Immature Gran # 0.07 Nucleated RBCs # 0.00 Sodium 139 Potassium 4.0 Chloride 106 Carbon Dioxide 23 Anion Gap 14.0 BUN 27 H D Creatinine 0.80 GFR Calculation 67 BUN/Creatinine Ratio 33.00 H Glucose 72 L POC Glucose 143 H Hemoglobin A1c Calculated Osmolality 280.5 Calcium 8.1 L Magnesium 2.1 04/14/17 04/14/17 04/14/17 20:39 16:40 16:05 WBC RBC Hgb Hct MCV MCH MCHC RDW Plt Count MPV Neut % (Auto) Lymph % (Auto) Hawkins % (Auto) Eos % (Auto) Baso % (Auto) Neut # (Auto) Lymph # (Auto) Hawkins # (Auto) Eos # (Auto) Baso # (Auto) Immature Gran % Nucleated RBC % Immature Gran # Nucleated RBCs # Sodium Potassium Chloride Carbon Dioxide Anion Gap BUN Creatinine GFR Calculation BUN/Creatinine Ratio Glucose POC Glucose 262 H 125 H Hemoglobin A1c 7.5 H Calculated Osmolality Calcium Magnesium 04/14/17 11:46 WBC RBC Hgb Hct MCV MCH MCHC RDW Plt Count MPV Neut % (Auto) Lymph % (Auto) Hawkins % (Auto) Eos % (Auto) Baso % (Auto) Neut # (Auto) Lymph # (Auto) Hawkins # (Auto) Eos # (Auto) Baso # (Auto) Immature Gran % Nucleated RBC % Immature Gran # Nucleated RBCs # Sodium Potassium Chloride Carbon Dioxide Anion Gap BUN Creatinine GFR Calculation BUN/Creatinine Ratio Glucose POC Glucose 175 H Hemoglobin A1c Calculated Osmolality Calcium Magnesium DS: Provider Date of admission: 04/13/17 11:05 Primary care physician: . No PCP Attending physician on admission: Dinorah Lindquist MD Consults: 04/13/17 11:54 Consult to Physician [CONS] Routine Comment: bradycardia Consulting Provider: Dae Byrne Person Notified: Luna Date Notified: 04/13/17 Time Notified: 17:28 Discharging clinician: Domonique Carvajal CNP <Dinorah Lindquist - Last Filed: 04/15/17 10:40> Hospital Course - Time spent with patient Time with patient DS: Greater than 30 minutes (45 min) Diagnosis - Discharge Diagnosis (1) Bradycardia Status: Acute (2) Diabetes mellitus Status: Chronic (3) Congestive heart failure Status: Acute (4) Hypertension Status: Chronic (5) VILMA (obstructive sleep apnea) Status: Acute (6) Pulmonary hypertension, moderate to severe Status: Acute (7) Mitral stenosis Status: Acute (8) Third degree AV block Status: Acute (9) Leukocytosis Status: Acute Discharge Plan - Discharge Data Condition at Discharge: Stable Discharge Diet: diabetic diet Activity: resume usual activities as tolerated Hygiene: no restrictions Weight Bearing at Discharge: full weight bearing Exam - Constitutional General appearance: normal weight, no acute distress - Respiratory Respiratory exam: Present: clear to auscultation bilaterally, wheezes. Absent: rhonchi - Cardiovascular Cardiovascular exam: Present: regular rate and rhythm. Absent: systolic murmur - GI/Abdominal GI/Abdominal exam: Present: normal bowel sounds, soft. Absent: tenderness - Extremities Exam Extremities exam: Present: normal inspection, normal capillary refill. Absent: edema - Neurological Exam Neurological exam: Present: alert, oriented X3 - Psychiatric Psychiatric exam: Present: normal affect, normal mood - Skin Skin exam: Present: normal color, warm
--- NOTE | 2017-04-15 09:33 | XRay Report ---
XR chest 2V Indication: Lead placement Comparison: 14 April 2017 Findings: The heart and mediastinum are stable in size and configuration. Pacemaker device is unchanged in position. The pulmonary vascularity is normal in caliber. Lung volumes are increased with prominent bronchial markings. No lung infiltrates, effusions, pneumothorax or other abnormality is demonstrated. Impression: Chronic lung changes. No acute process or significant change. PROCEDURE INTERPRETED AT [facility] DEPARTMENT OF RADIOLOGY Final Report Signed by: Dr. Ramon Ron
--- NOTE | 2017-04-15 10:51 | Cardiology Progress Note ---
Assessment and Plan (1) Pacemaker Status: Acute Assessment and plan: The patient's pacemaker was interrogated today and is functioning normally. Her chest x-ray shows stable lead position and no complications. Clinically she is doing well. I think she can be discharged home. I would like to see her back for follow-up in a week or 2 for wound check with myself or Dr. Byrne. After that we will arrange follow-up with her primary lone lead lineman Dr. Byrne. Current Visit: Yes (2) Bradycardia Status: Acute Assessment and plan: Resolved with pacemaker Current Visit: Yes (3) Mitral stenosis Status: Acute Assessment and plan: Clinically she is doing well. Hopefully she will continue to do well with conservative management. Current Visit: Yes (4) VILMA (obstructive sleep apnea) Status: Acute Current Visit: Yes (5) Pulmonary hypertension, moderate to severe Status: Acute Current Visit: Yes (6) Third degree AV block Status: Acute Assessment and plan: Managed with a pacemaker. Current Visit: Yes (7) Diabetes mellitus Status: Chronic Current Visit: Yes (8) Hypertension Status: Chronic Current Visit: Yes Cardiology - PN: Subj Interval history: The patient is looking and feeling great today. She has no chest pain, dyspnea , orthopnea, or peripheral edema. She has mild appropriate postoperative soreness at her pacemaker site. She tells me she is already feeling dramatically better and is ready for discharge home today. Current Medications Acetaminophen (Tylenol Tab) 650 mg PO Q4H PRN PRN Reason: Fever, Headache, Mild Pain Last Admin: 04/15/17 08:39 Dose: 650 mg Hydrocodone Bitart/Acetaminophen ([place] 7.5-325) 1 tablet PO Q4H PRN PRN Reason: Pain Moderate (4-7) Last Admin: 04/14/17 21:23 Dose: 1 tablet Dextrose/Water (D50) 25 gm IV PRN PRN PRN Reason: Hypoglycemia with IV access Enalapril Maleate (Vasotec Tab) 1.25 mg PO DAILY [facility] Last Admin: 04/15/17 08:39 Dose: 1.25 mg Glipizide (Glucotrol) 5 mg PO BID [facility] Last Admin: 04/15/17 08:39 Dose: 5 mg Glucagon () 1 mg IM PRN PRN PRN Reason: Hypoglycemia w/o IV access Hydralazine HCl (Apresoline Tab) 25 mg PO TID [facility] Last Admin: 04/15/17 08:39 Dose: 25 mg Magnesium Sulfate 2 gm/ Premix 50 mls @ 25 mls/hr IV .PER PROTOCOL PRN; Protocol PRN Reason: Per Protocol Magnesium Sulfate 4 gm/ Premix 100 mls @ 25 mls/hr IV .PER PROTOCOL PRN; Protocol PRN Reason: Per Protocol Levofloxacin/Dextrose 250 mg/ (Premix) 50 mls @ 50 mls/hr IV Q24H [facility] Insulin Human Lispro (Humalog) 0 unit SUBCUT ACHS [facility] PRN Reason: Protocol Last Admin: 04/15/17 07:45 Dose: Not Given Ondansetron HCl (Zofran Inj) 4 mg IV Q4H PRN PRN Reason: Nausea Pantoprazole Sodium (Protonix Tab) 40 mg PO DAILY [facility] Last Admin: 04/15/17 08:39 Dose: 40 mg Zaleplon (Sonata) 5 mg PO BEDTIME PRN PRN Reason: Insomnia Exam (Progress Note) - Constitutional Vitals: Period Temp Pulse Resp BP Sys/Gregg Pulse Ox Last 24 Hr 97.1 F-98.9 F 46-175 16-20 128-163/47-84 94-100 Exam: General: Appears well developed, well nourished, no apparent distress HEENT: Normocephalic, atraumatic Neck: Supple Neck, Midline Trachea, No JVD Cardiac: Regular rhythm, 2 out of 6 murmur, no gallop, no rub Pacer pocket: This is clean and dry with no evidence of infection or other complication Lungs: Clear to auscultation, No Wheeze, Rales, Rhonchi Neuro: Cranial Nerve 2-12 Intact, Motor Function Grossly Intact Abdomen: Soft, Active Bowel Sounds, No Masses, No Pulsations/Bruits Skin: Normal color, no rash Extremities: No Clubbing, No Cyanosis, No Edema, Normal Upper Extr. Pulses Musculoskeletal: No acute abnormality noted Psychiatric: The patient does not appear to be anxious or depressed Result/EKG - Labs CBC & BMP: 04/15/17 04:11 04/15/17 04:11 Lab Results: I have reviewed the past 24 hour labs Labs: Laboratory Results - last 24 hr 04/14/17 04/14/17 04/14/17 11:46 16:05 16:40 WBC RBC Hgb Hct MCV MCH MCHC RDW Plt Count MPV Neut % (Auto) Lymph % (Auto) [place] % (Auto) Eos % (Auto) Baso % (Auto) Neut # (Auto) Lymph # (Auto) Kimble # (Auto) Eos # (Auto) Baso # (Auto) Immature Gran % Nucleated RBC % Immature Gran # Nucleated RBCs # Sodium Potassium Chloride Carbon Dioxide Anion Gap BUN Creatinine GFR Calculation BUN/Creatinine Ratio Glucose POC Glucose 175 H 125 H Hemoglobin A1c 7.5 H Calculated Osmolality Calcium Magnesium 04/14/17 04/15/17 04/15/17 20:39 04:11 04:11 WBC 10.8 RBC 3.45 L Hgb 8.2 L Hct 26.8 L MCV 77.7 L MCH 24 L MCHC 30.6 L RDW 18.5 H Plt Count 278 MPV 11.1 Neut % (Auto) 66.3 Lymph % (Auto) 20.6 L Kimble % (Auto) 11.9 Eos % (Auto) 0.4 Baso % (Auto) 0.2 Neut # (Auto) 7.2 Lymph # (Auto) 2.2 Kimble # (Auto) 1.3 H Eos # (Auto) 0.0 Baso # (Auto) 0.0 Immature Gran % 0.6 Nucleated RBC % 0.0 Immature Gran # 0.07 Nucleated RBCs # 0.00 Sodium 139 Potassium 4.0 Chloride 106 Carbon Dioxide 23 Anion Gap 14.0 BUN 27 H D Creatinine 0.80 GFR Calculation 67 BUN/Creatinine Ratio 33.00 H Glucose 72 L POC Glucose 262 H Hemoglobin A1c Calculated Osmolality 280.5 Calcium 8.1 L Magnesium 2.1 04/15/17 07:40 WBC RBC Hgb Hct MCV MCH MCHC RDW Plt Count MPV Neut % (Auto) Lymph % (Auto) [place] % (Auto) Eos % (Auto) Baso % (Auto) Neut # (Auto) Lymph # (Auto) Kimble # (Auto) Eos # (Auto) Baso # (Auto) Immature Gran % Nucleated RBC % Immature Gran # Nucleated RBCs # Sodium Potassium Chloride Carbon Dioxide Anion Gap BUN Creatinine GFR Calculation BUN/Creatinine Ratio Glucose POC Glucose 143 H Hemoglobin A1c Calculated Osmolality Calcium Magnesium - EKG EKG results: interpreted by [facility] Specialty Discharge - Follow Up or Referrals Follow up with: tammie, [Other] - 2 Weeks Samuel Eliazbeth MD [Physician] - 1 Week
[2017-04-15 11:29] VITALS: BP 128/55
--- NOTE | 2017-04-15 11:49 | EKG Report ---
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
[2017-04-15] MEDS ORDERED: LEVOFLOXACIN INJ 250 MG in PREMIX 1 EACH IV SCH (16:00)
--- NOTE | 2017-04-20 11:05 | Physician Query Form ---
CLICK EDIT DOCUMENT TO SELECT QUERY ANSWER --> OK --> SIGN Chaya Santana RN, CCDS Certified Clinical Oil And Gas Specialist W) [phone] (f) [phone] [email or web address] PROVIDERS: Make your selection(s) from the choices in EACH section by typing an "x" and enter comments in the comment section. Please use your independent medical judgment in providing your response. This request does not imply that any particular answer is desired or expected. CLINICAL INDICATORS: (Providers should not edit this section) The medical record indicates that the patient was admitted with 3' Degree heat block, CHF [acute], BNP of 906#, "ejection fraction estimated at 70%", Uncontrolled hypertension 224/68 and the patient was treated with IV Lasix. Please provide further specificity regarding CHF. ACUITY: ( ) Acute ( ) Chronic ( x) Acute on Chronic ( ) Clinically unable to determine TYPE: ( ) Systolic (HFrEF - heart failure with reduced systolic function/EF) ( x) Diastolic (HFpEF - heart failure with preserved systolic function/EF) ( ) Combined Systolic/Diastolic ( ) Other, please specify: ( ) Clinically unable to determine ( ) The patient does NOT have CHF COMMENTS: PLEASE ALSO DOCUMENT RESPONSE IN PROGRESS NOTES AND/OR DISCHARGE SUMMARY Use of terms such as suspected, likely, or probable (associated with a specific diagnosis that is being evaluated, monitored, or treated as if it exists) are acceptable and can be restated in the discharge summary if not ruled out. MTDD
== END 2017-04-15 14:21 | disposition home health service (06) | DRG 242 ==
LOC: N.ED 08:27 → N.EDINP 11:05 → N.TELES 11:53
PROVIDERS: ADMIT Internal Medicine; ATTEND Internal Medicine